=== PATIENT | male | born 1940 | race Caucasian/White ===

== ENCOUNTER 2017-01-08 16:00 | Emergency (ER) | payer MEDICARE ==
--- NOTE | 2017-01-08 16:44 | ED ORDER SUMMARY ---
..... Patient: HELEN SPIVEY OrderSheet [facility] VisitID: [id number] [place] [address] 76y, M Registration Date/Time: 01/08/2017 ORDER SHEET Weight: 83.9 kg (stated) Allergies: No Known Drug Allergy GENERAL ORDERS: Suture Set-up: (16:20 01/08/2017 HBivens A.R.N.P.) (Ack 16:26 Alcides) (17:00 LSullivan R.N.) Dress Wounds (16:20 01/08/2017 HBivens A.R.N.P.) (Ack 16:26 Alcides) (17:00 LSullivan R.N.) MEDICATION ORDERS: Bupivacaine Injection 0.5 % (soln) (NOW, place at bedside) (16:19 01/08/2017 HBivens A.R.N.P.) (16:56 LSullivan R.N.) Lidocaine Injection 1% (NOW, place at bedside) (16:19 01/08/2017 HBivens A.R.N.P.) (16:55 LSullivan R.N.) Tdap IM 0.5 mL (NOW, per protocol) (16:20 01/08/2017 HBivens A.R.N.P.) (17:00 LSullivan R.N.) IV FLUIDS: ORDER SHEET NOTES: [Electronically signed by Shayla Jon R.N. (17:10 01/08/2017)] [Electronically signed by Ivanna ReardonR.N.POsiris (17:32 01/08/2017)] [Electronically locked/signed by Shayla Jon R.N. (17:10 01/08/2017)]
--- NOTE | 2017-01-08 16:44 | ED CLINICAL REPORT ---
Clinical Report - Physicians/Mid Levels [facility] [address] [place] [address] 01/08/2017 16:05 Patient: HELEN SPIVEY Time Seen: 1615; upon arrival, initial patient contact, initial documentation, patient care assumed. Arrived- By private vehicle. Historian- patient. HISTORY OF PRESENT ILLNESS Chief Complaint: Injury to the left thumb. The injury happened just prior to arrival. Occurred at home. The patient sustained a laceration from a saw (table saw cutting wood). Patient is experiencing mild pain. Patient denies injury to the head or neck. No other injury. REVIEW OF SYSTEMS The patient sustained a laceration. No swelling, tingling, numbness or weakness. All systems otherwise negative, except as recorded above. PAST HISTORY See nurses notes. ADDITIONAL SURGERIES: Atrial Fibrillation. Hypertension. Pacemaker. --16:18 Heber Sandoval R.N. The patient's dominant hand is the right. Tetanus immunization status is unknown. SOCIAL HISTORY Heavy tobacco smoker. Occasional alcohol use. No drug use. No recent travel. Is a local resident. FAMILY HISTORY No significant family medical history. ADDITIONAL NOTES The nursing notes have been reviewed with agreement regarding the chief complaint, HPI, ROS, PMH and patient medications and allergies. PHYSICAL EXAM Vital Signs: 01/08/2017 16:10 BP: 154/59. HR: 74. RR: 16. O2 saturation: 96%. Temp: 97.7 F. Pain level now: 3/10. Have been reviewed as normal and appear to be correct. Appearance: Alert. Oriented X3. No acute distress. (pt covered in wood particles). Head: Head atraumatic. Eyes: Pupils equal, round and reactive to light. Eyes normal inspection. Respiratory: No respiratory distress. Skin: Skin warm and dry. Skin intact. Extremities: Left thumb: superficial 2.0 cm laceration and suspected foreign body of the volar aspect and distal phalanx. SEE LACERATION PROCEDURE NOTE #1. Neurovascular intact distally. No erythema, tenderness, swelling, abrasion or ecchymosis. No puncture wound or deformity. No limitation in movement. No subungual hematoma or amputation present. No wrist injury. No hand injury. Hand and wrist exam otherwise negative. Extremities otherwise negative. Neuro, Vascular and Tendons: Vascular status intact. Sensation intact. Motor intact. Tendon function intact. Neuro: Oriented X 3. No motor deficit. No sensory deficit. Note: isolated injury to thumb. PROGRESS AND PROCEDURES Laceration Repair: Location: left thumb. Length: 2 cm. Complexity: simple (local anesthesia used and sutured). Wound depth/shape- linear and involving fascia. Contamination present. It is not clean. No foreign body present. No tissue loss. Exam note: arm covered in wood particles, area around hand and thumb appear clean, and pt stated wound was washed out with water, telephone station repairer foam and bandage applied. Distal neuro/vascular/tendon status normal. Tendon not examined. No tendon deficit or laceration or tendon injury. Anesthesia provided by digital block using 1% lidocaine and 0.50% Marcaine (4 mL). Prepped with Betadine and Hibiclens. Wound prep- scrubbed with hibiclens sponge. Wound explored, cleansed, irrigated and examined to the base in bloodless field extensively with normal saline. Wound not debrided. No foreign material removed. 500ml ns, no fb seen in wound. Closure of skin: interrupted 4-0 nylon (4 sutures). Post-procedure: he is stable and there are no complications. Bleeding is controlled and neuro-vascular status is intact distal to the wound. Clean dressing applied. (per tech/nurse, see other notes). Tetanus immunization given. Estimated blood loss: 10 mL. Patient counseled in person regarding the patient's stable condition and diagnosis. Differential Diagnosis: Other possible considerations: thumb lac, fb, tendon injury, skin avulsion. Above considerations are based on history and physical exam. Differential diagnosis was discussed with patient. Disposition: Discharged home in good and improved condition (16:44). Condition: good and stable. CLINICAL IMPRESSION Single deep laceration to the left thumb. Foreign body present.Treatment of laceration not delayed. No infection or left fingernail injury. INSTRUCTIONS Protect wound and keep wound area clean. Change dressing twice daily. Soak in warm soapy water. Apply bacitracin twice daily. Sutures should be removed in ten days. Warnings: TETANUS: You were given a tetanus shot during your visit. Make a note for future reference. GENERAL WARNINGS: Return or contact your physician immediately if your condition worsens or changes unexpectedly, if not improving as expected, or if other problems arise. Specifically return if problem worsens. Follow-up: Follow up with your doctor in about ten days even if well and for suture removal and wound check. Call for an appointment. Summary of care provided to patient. Understanding of the discharge instructions verbalized by patient. (Electronically signed by Ivanna Reardon A.R.N.P. 01/08/2017 17:32)
--- NOTE | 2017-01-08 16:44 | ED ORDER SUMMARY ---
..... Patient: HELEN SPIVEY OrderSheet [facility] VisitID: [id number] [place] [address] 76y, M Registration Date/Time: 01/08/2017 ORDER SHEET Weight: 83.9 kg (stated) Allergies: No Known Drug Allergy GENERAL ORDERS: Suture Set-up: (16:20 01/08/2017 HBivens A.R.N.P.) (Ack 16:26 Alcides) (17:00 LSullivan R.N.) Dress Wounds (16:20 01/08/2017 HBivens A.R.N.P.) (Ack 16:26 Alcides) (17:00 LSullivan R.N.) MEDICATION ORDERS: Bupivacaine Injection 0.5 % (soln) (NOW, place at bedside) (16:19 01/08/2017 HBivens A.R.N.P.) (16:56 LSullivan R.N.) Lidocaine Injection 1% (NOW, place at bedside) (16:19 01/08/2017 HBivens A.R.N.P.) (16:55 LSullivan R.N.) Tdap IM 0.5 mL (NOW, per protocol) (16:20 01/08/2017 HBivens A.R.N.P.) (17:00 LSullivan R.N.) IV FLUIDS: ORDER SHEET NOTES: [Electronically signed by Shayla Jon R.N. (17:10 01/08/2017)] [Electronically signed by Ivanna ReardonR.N.POsiris (17:32 01/08/2017)] [Electronically locked/signed by Shayla Jon R.N. (17:10 01/08/2017)]
--- NOTE | 2017-01-08 16:44 | ED NURSING NOTES ---
Clinical Report - Nurses [facility] [address] [place] [address] 01/08/2017 16:05 Patient: HELEN SPIVEY TRIAGE Triage time 16:10 Jan 08 2017. Acuity: LEVEL 3. Chief Complaint: INJURY TO LEFT HAND. INJURY TO THE LEFT THUMB (Laceration). Alert. KORI COMA SCORE: [place] Coma Scale: 15- eyes open spontaneously (4); best verbal response- oriented x 4 (5); best motor response- obeys commands (6). --16:24 Heber Sandoval R.N. 16:10 01/08/17. BP: 154/59. HR: 74. RR: 16. O2 saturation: 96%. Temp: 97.7 F (oral). Pain level now: 3/10. Additional comments: (L) Thumb. --16:24 Heber Sandoval R.N. Weight: 83.9 kg stated. Height/Length: 57 inches Per Patient. BMI: 40.1. --16:16 Heber Sandoval R.N. Medications Warfarin Sodium Oral 2 mg, daily. --16:15 Heber Sandoval R.N. Medication/allergy information source: the patient. --16:24 Heber Sandoval R.N. Allergies No Known Drug Allergy. --16:15 Heber Sandoval R.N. History ( (L) Thumb Laceration while using the table saw.). This occurred (about 1 hour ago). Occurred at home. He sustained a laceration. Treatment LEGAL BILLER: (Pressure Dressing Applied allyson pt in filed). PAST MEDICAL HX: Tetanus status: unknown. Immunizations: seasonal influenza: first dose. SOCIAL HX: Heavy tobacco smoker (cigarette)- 1 pack per day. Alcohol use. No drug use. No infectious disease exposure. ABUSE ASSESSMENT: No report of abuse. FALL RISK ASSESSMENT: Fall risk assessment completed. No fall risk identified. NUTRITIONAL RISK ASSESSMENT: The nutritional risk assessment revealed no deficiencies. FUNCTIONAL ASSESSMENT: Functional assessment: no impairments noted. LEARNING NEEDS ASSESSMENT: The learning needs assessment revealed no barriers. SKIN INTEGRITY ASSESSMENT: Skin integrity risk assessment completed. No skin integrity risk identified. --16:24 Heber Sandoval R.N. ADDITIONAL SURGERIES: Atrial Fibrillation. Hypertension. Pacemaker. --16:18 Heber Sandoval R.N. Interventions ID band on patient. To treatment room. --16:24 Heber Sandoval R.N. PHYSICAL ASSESSMENT 16:15. GENERAL / NEURO / PSYCH: Oriented X 4. Alert. Appears in no acute distress. EXTREMITIES: Left thumb: 2.0 cm laceration with controlled bleeding. --17:08 Shayla Jon R.N. NURSING PROGRESS NOTES 16:30 01/08/2017 Lidocaine Injection 1 % given. Allergies verified and confirmed 5 rights. --16:55 Shayla Jon R.N. 16:31 01/08/2017 Bupivacaine Injection 0.5 % given. Allergies verified and confirmed 5 rights. --16:56 Shayla Jon R.N. 17:00 01/08/2017 TDAP IM 0.5 mL given. (Lot#: [id number], expiration date: 07/17/2018, Book Retailer: sanofi pasteur). Given in the left deltoid. Vaccine information statement provided. --17:00 Shayla Jon R.N. 16:15. --17:07 Shayla Jon R.N. 16:25. WOUND REPAIR: Wound repair performed by EVENT SECURITY OFFICER. Preparation: suture tray set-up. Wound cleansed per EVENT SECURITY OFFICER. Procedure: wound repaired with sutures. Post-procedure: he was stable, no complications, bleeding controlled and dressing applied. Total time of assist / procedure: (about 10 minutes). --17:09 Shayla Jon R.N. 17:00. Applied sterile dressing, following the application of antibiotic ointment (bacitracin). Secured with tape and paulo (applied by NEUROSURGERY RESEARCH DIRECTOR). --17:10 Shayla Jon R.N. DISPOSITION / DISCHARGE Departure time: 1702. Condition at departure: improved. ( Vitals deferred, here < 1 hour). No learning barriers present. Discharge instructions provided and reviewed with the patient. Reviewed wound care instructions. Verbalized understanding. Written instructions provided. The patient was discharged home. He left the Emergency Department ambulatory and via private vehicle. --17:05 Shayla Jon R.N. Locked/Released at 01/08/2017 17:10 by Shayla Jon R.N.
--- NOTE | 2017-01-08 16:44 | ED NURSING NOTES ---
Clinical Report - Nurses [facility] [address] [place] [address] 01/08/2017 16:05 Patient: HELEN SIPVEY TRIAGE Triage time 16:10 Jan 08 2017. Acuity: LEVEL 3. Chief Complaint: INJURY TO LEFT HAND. INJURY TO THE LEFT THUMB (Laceration). Alert. KORI COMA SCORE: [place] Coma Scale: 15- eyes open spontaneously (4); best verbal response- oriented x 4 (5); best motor response- obeys commands (6). --16:24 Heber Sandoval R.N. 16:10 01/08/17. BP: 154/59. HR: 74. RR: 16. O2 saturation: 96%. Temp: 97.7 F (oral). Pain level now: 3/10. Additional comments: (L) Thumb. --16:24 Heber Sandvoal R.N. Weight: 83.9 kg stated. Height/Length: 57 inches Per Patient. BMI: 40.1. --16:16 Heber Sandoval R.N. Medications Warfarin Sodium Oral 2 mg, daily. --16:15 Heber Sandoval R.N. Medication/allergy information source: the patient. --16:24 Heber Sandoval R.N. Allergies No Known Drug Allergy. --16:15 Heber Sandoval R.N. History ( (L) Thumb Laceration while using the table saw.). This occurred (about 1 hour ago). Occurred at home. He sustained a laceration. Treatment ROUGHING MILL OPERATOR: (Pressure Dressing Applied allyson pt in filed). PAST MEDICAL HX: Tetanus status: unknown. Immunizations: seasonal influenza: first dose. SOCIAL HX: Heavy tobacco smoker (cigarette)- 1 pack per day. Alcohol use. No drug use. No infectious disease exposure. ABUSE ASSESSMENT: No report of abuse. FALL RISK ASSESSMENT: Fall risk assessment completed. No fall risk identified. NUTRITIONAL RISK ASSESSMENT: The nutritional risk assessment revealed no deficiencies. FUNCTIONAL ASSESSMENT: Functional assessment: no impairments noted. LEARNING NEEDS ASSESSMENT: The learning needs assessment revealed no barriers. SKIN INTEGRITY ASSESSMENT: Skin integrity risk assessment completed. No skin integrity risk identified. --16:24 Heber Sandoval R.N. ADDITIONAL SURGERIES: Atrial Fibrillation. Hypertension. Pacemaker. --16:18 Heber Sandoval R.N. Interventions ID band on patient. To treatment room. --16:24 Heber Sandoval R.N. PHYSICAL ASSESSMENT 16:15. GENERAL / NEURO / PSYCH: Oriented X 4. Alert. Appears in no acute distress. EXTREMITIES: Left thumb: 2.0 cm laceration with controlled bleeding. --17:08 Shayla Jon R.N. NURSING PROGRESS NOTES 16:30 01/08/2017 Lidocaine Injection 1 % given. Allergies verified and confirmed 5 rights. --16:55 Shayla Jon R.N. 16:31 01/08/2017 Bupivacaine Injection 0.5 % given. Allergies verified and confirmed 5 rights. --16:56 Shayla Jon R.N. 17:00 01/08/2017 TDAP IM 0.5 mL given. (Lot#: [id number], expiration date: 07/17/2018, County Library Director: sanofi pasteur). Given in the left deltoid. Vaccine information statement provided. --17:00 Shayla Jon R.N. 16:15. --17:07 Shayla Jon R.N. 16:25. WOUND REPAIR: Wound repair performed by FRUIT PACKER FACE AND FILL. Preparation: suture tray set-up. Wound cleansed per FRUIT PACKER FACE AND FILL. Procedure: wound repaired with sutures. Post-procedure: he was stable, no complications, bleeding controlled and dressing applied. Total time of assist / procedure: (about 10 minutes). --17:09 Shayla Jon R.N. 17:00. Applied sterile dressing, following the application of antibiotic ointment (bacitracin). Secured with tape and paulo (applied by DEATH SURVEYS CODER). --17:10 Shayla Jon R.N. DISPOSITION / DISCHARGE Departure time: 1702. Condition at departure: improved. ( Vitals deferred, here < 1 hour). No learning barriers present. Discharge instructions provided and reviewed with the patient. Reviewed wound care instructions. Verbalized understanding. Written instructions provided. The patient was discharged home. He left the Emergency Department ambulatory and via private vehicle. --17:05 Shayla Jon R.N. Locked/Released at 01/08/2017 17:10 by Shayla Jon R.N.
--- NOTE | 2017-01-08 17:32 | ED DISCHARGE INSTRUCTIONS ---
Patient: HELEN SPIVEY General Instructions [facility] VisitID: [id number] [place] [address] 76y, M Registration Date/Time: 01/08/2017 Single deep laceration to the left thumb. Foreign body present.Treatment of laceration not delayed. No infection or left fingernail injury. INSTRUCTIONS Protect wound and keep wound area clean. Change dressing twice daily. Soak in warm soapy water. Apply bacitracin twice daily. Sutures should be removed in ten days. Warnings: TETANUS: You were given a tetanus shot during your visit. Make a note for future reference. GENERAL WARNINGS: Return or contact your physician immediately if your condition worsens or changes unexpectedly, if not improving as expected, or if other problems arise. Specifically return if problem worsens. Follow-up: Follow up with your doctor in about ten days even if well and for suture removal and wound check. Call for an appointment. Summary of care provided to patient. Understanding of the discharge instructions verbalized by patient. ADDITIONAL INFORMATION Laceration, Extremity (Sutures, Jessica, Or Tape) A laceration is a cut through the skin. This will usually require stitches (sutures) or jessica if it is deep. Minor cuts may be treated with surgical tape closures. Home care The following guidelines will help you care for your laceration at home: Keep the wound clean and dry. If a bandage was applied and it becomes wet or dirty, replace it. Otherwise, leave it in place for the first 24 hours, then change it once a day or as directed. If stitches or jessica were used, clean the wound daily: After removing the bandage, wash the area with soap and water. Use a wet cotton swab to loosen and remove any blood or crust that forms. After cleaning, keep the wound clean and dry. Talk with your doctor before applying any antibiotic ointment to the wound. Reapply the bandage. You may remove the bandage to shower as usual after the first 24 hours, but do not soak the area in water (no swimming) until the stitches or jessica are removed. If surgical tape closures were used, keep the area clean and dry. If it becomes wet, blot it dry with a towel. The doctor may prescribe an antibiotic cream or ointment to prevent infection. Do not stop taking this medication until you have finished the prescribed course or the doctor tells you to stop. The doctor may also prescribe medications for pain. Follow the doctors instructions for taking these medications. If you have chronic liver or kidney disease or ever had a stomach ulcer or GI bleeding, talk with your doctor before using these medicines. Follow-up care Follow up with your health care provider. Most skin wounds heal within ten days. However, an infection may sometimes occur despite proper treatment. Therefore, check the wound daily for the signs of infection listed below. Stitches and jessica should be removed within 714 days. If surgical tape closures were used, you may remove them after 10 days, if they have not fallen off by then. Notify your doctor if you notice persistent numbness or weakness in the injured extremity. (Note:A radiologist will review any X-rays that were taken. We will notify you of any new findings that may affect your care.) When to seek medical care Get prompt medical attention if any of these occur: Increasing pain in the wound Redness, swelling, or pus coming from the wound Fever of 100.4F (38C) or higher, or as directed by your health care provider If stitches or jessica come apart or fall out before your next appointment If the surgical tape closures fall off within seven days, or the wound edges re-open Bleeding not controlled by direct pressure Diphtheria Toxoid Adsorbed, Pertussis Vaccine, Acellular (Adsorbed), Tetanus Toxoid, Adsorbed Suspension for injection What is this medicine? DIPHTHERIA and TETANUS TOXOIDS; PERTUSSIS VACCINE (dif THEER ee and TET n us TOK soids; per TUS iss vak SEEN) is used to prevent diphtheria, tetanus, and pertussis infections. How should I use this medicine? This vaccine is for injection into a muscle. It is given by a health director of career resources. A copy of Vaccine Information Statements will be given before each vaccination. Read this sheet carefully each time. The sheet may change frequently. Talk to your clipper counters regarding the use of this vaccine in children. While the DTP vaccine may be given to children ages 6 weeks to 7 years and the Tdap vaccine may be given to children at least 10 years old, precautions do apply. What side effects may I notice from receiving this medicine? Side effects that you should report to your doctor or health director of career resources as soon as possible: allergic reactions like skin rash, itching or hives, swelling of the face, lips, or tongue breathing problems fever of 103 degrees F or more flu-like symptoms inconsolable crying infection pain, tingling, numbness in the hands or feet seizures swelling of arm or leg that was injected unusually weak or tired Side effects that usually do not require immediate medical attention (report these side effects to your doctor or health director of career resources if they continue or are bothersome): fussy, irritable loss of appetite fever of 102 degrees F or less pain, tenderness, redness, swelling, or a 'knot' at site where injected vomiting What may interact with this medicine? immune globulin medicines that suppress your immune function like adalimumab, anakinra, infliximab medicines to treat cancer medicines that treat or prevent blood clots like warfarin, enoxaparin, and dalteparin steroid medicines like prednisone or cortisone What if I miss a dose? It is important not to miss your dose. Call your doctor or health director of career resources if you are unable to keep an appointment. Where should I keep my medicine? This drug is given in a hospital or clinic and will not be stored at home. What should I tell my health care provider before I take this medicine? They need to know if you have any of these conditions: blood disorders like hemophilia fever or infection immune system problems neurologic disease seizures an unusual or allergic reaction to vaccines, thimerosal, latex, other medicines, foods, dyes, or preservatives or trying to get breast-feeding What should I watch for while using this medicine? See your health care provider for all shots of this vaccine as directed. To have protection from infection, you must have 3 shots of this vaccine plus boosters as needed. Tell your doctor right away if you have any serious or unusual side effects after getting this vaccine. You have been given the following additional information: Laceration, Extrem (Suture, Staple, Or Tape) Diphtheria Toxoid Adsorbed, Pertussis Vaccine, Acellular (Adsorbed), Tetanus Toxoid, Adsorbed Suspension for injection (Electronically signed by Ivanna Reardon A.R.N.P. 01/08/2017 17:32)
--- NOTE | 2017-01-08 17:32 | ED MAR SUMMARY ---
..... Medication Administration Record [facility] [address] [place] [address] Patient: HELEN SPIVEY Visit ID: [id number] 76y, M Weight: 83.9 kg Height/Length: 57 in BMI: 40.1 ALLERGIES: No Known Drug Allergy Given 16:30 01/08/2017 Shayla Jon R.N. Medication Administered: LIDOCAINE [INJECTION], Dose: 1 % Injection. Medication Ordered: Lidocaine Injection 1% (NOW, place at bedside). Given 16:31 01/08/2017 Shayla Jon R.N. Medication Administered: BUPIVACAINE [INJECTION], Dose: 0.5 % Injection. Medication Ordered: Bupivacaine Injection 0.5 % (soln) (NOW, place at bedside). Given 17:00 01/08/2017 Shayla Jon R.N. Medication Administered: TDAP [IM], Dose: 0.5 mL IM. Medication Ordered: Tdap IM 0.5 mL (NOW, per protocol).
--- NOTE | 2017-01-08 17:32 | ED MAR SUMMARY ---
..... Medication Administration Record [facility] [address] [place] [address] Patient: HELEN SPIVEY Visit ID: [id number] 76y, M Weight: 83.9 kg Height/Length: 57 in BMI: 40.1 ALLERGIES: No Known Drug Allergy Given 16:30 01/08/2017 Shayla Jon R.N. Medication Administered: LIDOCAINE [INJECTION], Dose: 1 % Injection. Medication Ordered: Lidocaine Injection 1% (NOW, place at bedside). Given 16:31 01/08/2017 Shayla Jon R.N. Medication Administered: BUPIVACAINE [INJECTION], Dose: 0.5 % Injection. Medication Ordered: Bupivacaine Injection 0.5 % (soln) (NOW, place at bedside). Given 17:00 01/08/2017 Shayla Jon R.N. Medication Administered: TDAP [IM], Dose: 0.5 mL IM. Medication Ordered: Tdap IM 0.5 mL (NOW, per protocol).
--- NOTE | 2017-01-08 17:32 | ED MED RECONCILIATION SUMMARY ---
Patient: HELEN SPIVEY Medication Reconciliation Report [facility] VisitID: [id number] [place] [address] 76y, M Registration Date/Time: 01/08/2017 Weight: 83.9 kg Height/Length: 57 in. BMI: 40.1 ALLERGIES: No Known Drug Allergy The patient's Home Medications are listed below: THE FOLLOWING MEDICATIONS NEED TO BE RECONCILED: Warfarin Sodium Oral 2 mg, daily The source(s) of the original Home Medication information: patient The following Medications were given to the patient in the Emergency Department: Lidocaine [Injection] Injection 1 %, administered: 01/08/2017 4:30:00 PM Bupivacaine [Injection] Injection 0.5 %, administered: 01/08/2017 4:31:00 PM TDAP [IM] IM 0.5 mL, administered: 01/08/2017 5:00:00 PM The following Medications were prescribed to the patient: None.
--- NOTE | 2017-01-08 17:32 | ED DISCHARGE INSTRUCTIONS ---
Patient: HELEN SPIVEY General Instructions [facility] VisitID: [id number] [place] [address] 76y, M Registration Date/Time: 01/08/2017 Single deep laceration to the left thumb. Foreign body present.Treatment of laceration not delayed. No infection or left fingernail injury. INSTRUCTIONS Protect wound and keep wound area clean. Change dressing twice daily. Soak in warm soapy water. Apply bacitracin twice daily. Sutures should be removed in ten days. Warnings: TETANUS: You were given a tetanus shot during your visit. Make a note for future reference. GENERAL WARNINGS: Return or contact your physician immediately if your condition worsens or changes unexpectedly, if not improving as expected, or if other problems arise. Specifically return if problem worsens. Follow-up: Follow up with your doctor in about ten days even if well and for suture removal and wound check. Call for an appointment. Summary of care provided to patient. Understanding of the discharge instructions verbalized by patient. ADDITIONAL INFORMATION Laceration, Extremity (Sutures, Jessica, Or Tape) A laceration is a cut through the skin. This will usually require stitches (sutures) or jessica if it is deep. Minor cuts may be treated with surgical tape closures. Home care The following guidelines will help you care for your laceration at home: Keep the wound clean and dry. If a bandage was applied and it becomes wet or dirty, replace it. Otherwise, leave it in place for the first 24 hours, then change it once a day or as directed. If stitches or jessica were used, clean the wound daily: After removing the bandage, wash the area with soap and water. Use a wet cotton swab to loosen and remove any blood or crust that forms. After cleaning, keep the wound clean and dry. Talk with your doctor before applying any antibiotic ointment to the wound. Reapply the bandage. You may remove the bandage to shower as usual after the first 24 hours, but do not soak the area in water (no swimming) until the stitches or jessica are removed. If surgical tape closures were used, keep the area clean and dry. If it becomes wet, blot it dry with a towel. The doctor may prescribe an antibiotic cream or ointment to prevent infection. Do not stop taking this medication until you have finished the prescribed course or the doctor tells you to stop. The doctor may also prescribe medications for pain. Follow the doctors instructions for taking these medications. If you have chronic liver or kidney disease or ever had a stomach ulcer or GI bleeding, talk with your doctor before using these medicines. Follow-up care Follow up with your health care provider. Most skin wounds heal within ten days. However, an infection may sometimes occur despite proper treatment. Therefore, check the wound daily for the signs of infection listed below. Stitches and jessica should be removed within 714 days. If surgical tape closures were used, you may remove them after 10 days, if they have not fallen off by then. Notify your doctor if you notice persistent numbness or weakness in the injured extremity. (Note:A radiologist will review any X-rays that were taken. We will notify you of any new findings that may affect your care.) When to seek medical care Get prompt medical attention if any of these occur: Increasing pain in the wound Redness, swelling, or pus coming from the wound Fever of 100.4F (38C) or higher, or as directed by your health care provider If stitches or jessica come apart or fall out before your next appointment If the surgical tape closures fall off within seven days, or the wound edges re-open Bleeding not controlled by direct pressure Diphtheria Toxoid Adsorbed, Pertussis Vaccine, Acellular (Adsorbed), Tetanus Toxoid, Adsorbed Suspension for injection What is this medicine? DIPHTHERIA and TETANUS TOXOIDS; PERTUSSIS VACCINE (dif THEER ee and TET n us TOK soids; per TUS iss vak SEEN) is used to prevent diphtheria, tetanus, and pertussis infections. How should I use this medicine? This vaccine is for injection into a muscle. It is given by a health clinical care coordinator. A copy of Vaccine Information Statements will be given before each vaccination. Read this sheet carefully each time. The sheet may change frequently. Talk to your healthcare advisory services manager regarding the use of this vaccine in children. While the DTP vaccine may be given to children ages 6 weeks to 7 years and the Tdap vaccine may be given to children at least 10 years old, precautions do apply. What side effects may I notice from receiving this medicine? Side effects that you should report to your doctor or health clinical care coordinator as soon as possible: allergic reactions like skin rash, itching or hives, swelling of the face, lips, or tongue breathing problems fever of 103 degrees F or more flu-like symptoms inconsolable crying infection pain, tingling, numbness in the hands or feet seizures swelling of arm or leg that was injected unusually weak or tired Side effects that usually do not require immediate medical attention (report these side effects to your doctor or health clinical care coordinator if they continue or are bothersome): fussy, irritable loss of appetite fever of 102 degrees F or less pain, tenderness, redness, swelling, or a 'knot' at site where injected vomiting What may interact with this medicine? immune globulin medicines that suppress your immune function like adalimumab, anakinra, infliximab medicines to treat cancer medicines that treat or prevent blood clots like warfarin, enoxaparin, and dalteparin steroid medicines like prednisone or cortisone What if I miss a dose? It is important not to miss your dose. Call your doctor or health clinical care coordinator if you are unable to keep an appointment. Where should I keep my medicine? This drug is given in a hospital or clinic and will not be stored at home. What should I tell my health care provider before I take this medicine? They need to know if you have any of these conditions: blood disorders like hemophilia fever or infection immune system problems neurologic disease seizures an unusual or allergic reaction to vaccines, thimerosal, latex, other medicines, foods, dyes, or preservatives or trying to get breast-feeding What should I watch for while using this medicine? See your health care provider for all shots of this vaccine as directed. To have protection from infection, you must have 3 shots of this vaccine plus boosters as needed. Tell your doctor right away if you have any serious or unusual side effects after getting this vaccine. You have been given the following additional information: Laceration, Extrem (Suture, Staple, Or Tape) Diphtheria Toxoid Adsorbed, Pertussis Vaccine, Acellular (Adsorbed), Tetanus Toxoid, Adsorbed Suspension for injection (Electronically signed by Ivanna Reardon A.R.N.P. 01/08/2017 17:32)
--- NOTE | 2017-01-08 17:32 | ED MED RECONCILIATION SUMMARY ---
Patient: HELEN SPIVEY Medication Reconciliation Report [facility] VisitID: [id number] [address] [place] [address] 76y, M Registration Date/Time: 01/08/2017 Weight: 83.9 kg Height/Length: 57 in. BMI: 40.1 ALLERGIES: No Known Drug Allergy The patient's Home Medications are listed below: THE FOLLOWING MEDICATIONS NEED TO BE RECONCILED: Warfarin Sodium Oral 2 mg, daily The source(s) of the original Home Medication information: patient The following Medications were given to the patient in the Emergency Department: Lidocaine [Injection] Injection 1 %, administered: 01/08/2017 4:30:00 PM Bupivacaine [Injection] Injection 0.5 %, administered: 01/08/2017 4:31:00 PM TDAP [IM] IM 0.5 mL, administered: 01/08/2017 5:00:00 PM The following Medications were prescribed to the patient: None.
== END 2017-01-08 17:02 | disposition home or self-care (01) ==
LOC: ED SRH 16:00
DX: S61.022A Laceration with foreign body of left thumb without damage to nail, initial encounter (principal); W27.0XXA Contact with workbench tool, initial encounter; Y93.89 Activity, other specified; Y99.8 Other external cause status; Y92.009 Unspecified place in unspecified non-institutional (private) residence as the place of occurrence of the external cause; Z23 Encounter for immunization; F17.210 Nicotine dependence, cigarettes, uncomplicated; I10 Essential (primary) hypertension; Z95.0 Presence of cardiac pacemaker; Z79.01 Long term (current) use of anticoagulants